=== PATIENT | male | born 1950 | race Two or more races ===

== ENCOUNTER 2019-05-30 18:18 | Inpatient (IN) | payer MEDICARE ==
[2019-05-30] MEDS ORDERED: MAGNESIUM SULFATE SYG 4.06 MEQ/ML SYRINGE ONE (18:20)
[2019-05-30] MEDS ORDERED: EPINEPHrine 10 ML SYRINGE (0.1 MG/ML) ONE (18:20)
[2019-05-30] MEDS ORDERED: DEXTROSE 5% IN WATER 250 ML BAG IV ONE (18:30)
[2019-05-30] MEDS ORDERED: EPINEPHrine 4 MG in DEXTROSE 5% IN WATER 250 ML IV ONE ×2 (18:30)
[2019-05-30] MEDS ORDERED: NOREPINEPHRINE 1 MG/ML 4 ML VIAL IV ONE (18:30)
[2019-05-30] MEDS ORDERED: LIDOCAINE 1% INJ 10MG/ML (20 ML MDV) ONE (19:00)
[2019-05-30 19:09] LABS: Albumin 2.1 g/dL (3.5-5.0); Calcium 7.5 mg/dL (8.4-10.2); Potassium 5.5 mmol/L (3.5-5.1); Total Bilirubin 0.2 mg/dL (0.2-1.3); Total Protein 3.6 g/dL (6.3-8.2)
[2019-05-30 19:11] LABS: Anisocytosis Slight; Hypochromasia Marked; MCH 30.9 pg (25.0-35.0); MCV 106.4 fL (80.0-100.0); Macrocytosis Moderate; Mean Platelet Volume 9.3; Platelet Count 218 k/uL (150-450); RBC 1.53 m/uL (4.30-5.90); RDW 16.1 % (11.5-15.5)
[2019-05-30 19:14] LABS: HGB 4.7 gm/dL (13.0-17.5)
[2019-05-30 19:15] LABS: HCT 16.3 % (39.0-53.0)
[2019-05-30 19:21] LABS: Creatine Kinase MB 4.1 ng/mL (0.0-2.4)
[2019-05-30 19:26] LABS: Troponin I 0.258 ng/mL (0.000-0.034)
[2019-05-30 19:42] LABS: Lymphocytes # (M) 1.86 k/uL (1.0-4.8); Monocytes # (M) 0.35 k/uL (0-1.0); Neutrophils # (M) 9.51 k/uL (1.3-7.7); Neutrophils % (M) 82 %; Nucleated Red Blood Cells 4 /100 WBC (0-0); Total Cells Counted 200; WBC 11.6 k/uL (3.8-10.6)
[2019-05-30 19:43] LABS: INR 1.3 (<1.2); Partial Thromboplastin Time 26.9 sec (22.0-30.0); Polychromasia Present; Prothrombin Time 13.4 sec (9.0-12.0)
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
[2019-05-30] MEDS ORDERED: SODIUM CHLORIDE 0.9% 1,000 ML IV ONE (20:20)
[2019-05-30] MEDS ORDERED: NOREPINEPHRINE 8 MG in SODIUM CHLORIDE 0.9% 250 ML IV ONE (21:00)
[2019-05-30 21:07] LABS: Anisocytosis Slight; Hypochromasia Marked; MCH 30.3 pg (25.0-35.0); MCHC 29.5 g/dL (31.0-37.0); MCV 102.7 fL (80.0-100.0); Macrocytosis Slight; Mean Platelet Volume 9.5; Platelet Count 273 k/uL (150-450); RBC 1.87 m/uL (4.30-5.90); RDW 16.1 % (11.5-15.5)
--- NOTE | 2019-05-30 21:13 | CT ---
EXAMINATION TYPE: CT brain wo con DATE OF EXAM: 05/30/2019 COMPARISON: None HISTORY: 68-year-old male unresponsive post NE TECHNIQUE: Examination was done in axial plane without intravenous contrast. Coronal and sagittal r econstructions performed. CT DLP: 1064.4 mGycm Automated exposure control for dose reduction was used. FINDINGS: There is no evidence of acute intracranial hemorrhage, acute ischemic changes, mass, mass-effect, or extra-axial fluid collection. There is no effacement of cerebral sulci or basal subarachnoid cister ns. There is no hydrocephalus. There is no midline shift. Saucedo-white matter distinction is preserv ed. Prominent secretions layering within the posterior nasopharynx. Mild mucosal thickening ethmoid air c ells. Mastoid air cells are well pneumatized. Empty sella incidentally noted. IMPRESSION: 1. No acute intracranial abnormality seen. 2. Prominent secretions layering within the posterior nasopharynx in keeping with intubated status.
[2019-05-30 21:18] LABS: HCT 19.2 % (39.0-53.0); HGB 5.7 gm/dL (13.0-17.5)
[2019-05-30 21:23] LABS: Albumin 2.5 g/dL (3.5-5.0); Calcium 7.5 mg/dL (8.4-10.2); Total Bilirubin 0.4 mg/dL (0.2-1.3); Total Protein 4.4 g/dL (6.3-8.2)
--- NOTE | 2019-05-30 21:25 | CT ---
EXAMINATION TYPE: CT ChestAbdPelvis wo con DATE OF EXAM: 05/30/2019 COMPARISON: None HISTORY: 68-year-old male anemia. TECHNIQUE: Contiguous axial scanning of the chest, abdomen, and pelvis without IV contrast. Coronal a nd sagittal reconstructions performed. CT DLP: 1281.8 mGycm Automated exposure control for dose reduction was used. FINDINGS: Chest: Left anterior chest wall pacemaker generator with right atrial and right ventricular leads. Median st ernotomy wires are present with post-CABG changes and annuloplasty ring. ET tube tip is just at the yesi. Heart is mildly enlarged without pericardial effusion. Aorta normal caliber with mild atherosclerotic arch calcifications and conventional arch vessel branc rajan anatomy. Large caliber to the main right and left pulmonary arteries measuring up to 3.0 cm suggesting underly ing pulmonary arterial hypertension. Mediastinal lymph nodes measure up to 7 mm right paratracheal region. No thoracic lymphadenopathy by CT size criteria. Prominent bands of atelectasis mid and lower lungs. Trace effusion on the right. Masslike area of con solidation peripheral right base could represent rounded atelectasis or infiltrate/pneumonia. ABDOMEN: Small hiatal hernia. Postsurgical changes of gastrectomy. Cholelithiasis with stones measuring up to 2.2 cm. No abnormal gallbladder distention. Noncontrast appearance of the liver, right adrenal gland, left kidney, and pancreas show no gross abn ormality. Small diverticulum of the second portion of the duodenum projecting into the pancreatic hea d region. Small calcified granulomas in the spleen. 3.1 cm nodule left adrenal gland shows attenuation of 14.9 Hounsfield units which is indeterminate. 1 .7 cm lesion exophytic lateral upper pole right kidney. Additional subcentimeter cortical lesions in the right kidney showing intermediate attenuation. Solid masses or complicated cysts are in the diffe rential. Moderate atherosclerotic calcifications abdominal aorta and iliac arteries. No dilated small bowel, free fluid, or free air. Normal appendix. There is moderate stool burden. No pericolonic inflammatory change. Pelvis: Bladder is collapsed with Saenz catheter in place. Some central prostatic calcifications are noted. N o abnormal fluid collection in the pelvis or pelvic lymphadenopathy. Bones: Nondisplaced fractures of the right anterior third through seventh ribs.. Additional nondisplaced fra ctures of the left anterior fourth through sixth ribs. Mild degenerative changes of the hips. Endplate spondylosis lower thoracic spine. IMPRESSION: 1. ET TUBE TIP IS AT THE YESI. THIS CAN BE PULLED BACK 4 CM AND REASSESSED AT FOLLOW-UP. 2. TRACE RIGHT PLEURAL EFFUSION. THERE IS MASSLIKE CONSOLIDATION AT THE PERIPHERAL RIGHT BASE THAT CO ULD REPRESENT ROUNDED ATELECTASIS VERSUS PULMONARY CONTUSION VERSUS PNEUMONIA. CLINICALLY CORRELATE. SHORT INTERVAL FOLLOW-UP IN 6-8 WEEKS TO REASSESS. 3. NONDISPLACED FRACTURES OF THE RIGHT ANTERIOR THIRD THROUGH SEVENTH RIBS. ADDITIONAL NONDISPLACED F RACTURES OF THE LEFT ANTERIOR FOURTH THROUGH SIXTH RIBS. QUERY CPR IN THIS PATIENT. 4. A 3.1 CM NODULE LEFT ADRENAL GLAND STATISTICALLY REPRESENTS A BENIGN ADRENAL ADENOMA BUT IS SHOWS INDETERMINATE DENSITY. 3-6 MONTH FOLLOW-UP ADRENAL MASS PROTOCOL CT RECOMMENDED TO REASSESS. 5. INDETERMINATE CORTICAL LESIONS WITHIN THE RIGHT KIDNEY SHOULD BE REASSESSED AT THAT TIME WELL. SMALL SOLID MASSES VERSUS COMPLICATED CYSTS ARE IN THE DIFFERENTIAL MEASURING UP TO 1.7 CM. 6. CHOLELITHIASIS AND SMALL HIATAL HERNIA.
[2019-05-30 21:33] LABS: Potassium 6.9 mmol/L (3.5-5.1)
[2019-05-30] MEDS ORDERED: INSULIN REGULAR 100 UNIT/ML VIAL IV ONE (21:33)
[2019-05-30] MEDS ORDERED: DEXTROSE 50% SYRINGE 50 ML IVP STA (21:33)
[2019-05-30] MEDS ORDERED: CALCIUM CHLORIDE 100 MG/ML 10 ML SYRINGE IVP STA (21:33)
[2019-05-30] MEDS ORDERED: SODIUM BICARB 8.4% 50 ML SYR (1 MEQ/ML) IV STA (21:50)
--- NOTE | 2019-05-30 21:57 | XR ---
EXAMINATION TYPE: XR chest 1V portable DATE OF EXAM: 05/30/2019 Comparison: CT same day Clinical History: 5-year-old male with Pain Findings: ET tube tip is very close to the yesi. This can be pulled back 2 cm and reassessed at follow-up. Me matta sternotomy wires are present with annuloplasty ring and post-CABG clips. Left anterior chest wal l pacemaker generator with right atrial and ventricular leads. There is underlying pleural-parenchymal opacity prominent at the right base. Left lung and pleural sp allen appear relatively clear. Right IJ CVC tip in the right atrium. Impression: 1. ET tube tip very close to the yesi. Pull back 2 cm and reassess at follow-up. 2. Prominent pleural parenchymal opacity at the right base likely combination of decreasing effusion and masslike consolidation is seen on patient's CT with differential provided on that exam.
[2019-05-30] MEDS ORDERED: NALOXONE 0.4 MG/ML 1 ML VIAL IV PRN (21:59)
[2019-05-30] MEDS: fentaNYL (PF) 1,000 MCG in SODIUM CHLORIDE 0.9% 80 ML IV SCH (22:02)
--- NOTE | 2019-05-30 22:10 | CONS ---
CONSULTATION This is a 68-year-old gentleman who came to the [facility] Emergency Room having had a cardiac arrest at home. He had a down time of 10 minutes, was resuscitated. By the time he came to the ER, he was in a paced rhythm, hypotensive, was requiring pressors. Initially, the ER doctor told us that the patient had ventricular tachycardia, fibrillation for which he was shocked and he was sent to the [facility]. Before I could start the cardiac cath on him his labs have come back and his hemoglobin is 4.5. In talking to the , we found that patient has had rectal bleeding and is currently on Xarelto. We canceled the procedure and we will admit him to the intensive care unit. Continue the vent. Continue the supportive care and give him a blood transfusion. His prognosis is guarded. PAST MEDICAL HISTORY: Past medical history is significant for CAD status post CABG, valvular heart disease, pacemaker, atrial fibrillation. I do not have a list of his medications, allergies, family history or social history. REVIEW OF SYSTEMS: I am unable to obtain from the patient. EXAM: The patient is intubated, vent, sedated and unresponsive. Heart rate is 60 beats per minute. Blood pressure 96/40. Chest exam reveals diminished air entry at the bases. Heart exam reveals first and second heart sounds. No gallop. Exam of extremities reveal trace edema. Peripheral pulses are diminished. ASSESSMENT: 1. Status post cardiac arrest, probably secondary to GI bleed, hypotension and severe anemia. 2. Renal failure. 3. Coronary artery disease, status post coronary artery bypass grafting. PLAN: Will admit the patient to ICU and manage the GI bleed. He is not a candidate for invasive procedures from cardiac standpoint at this time. MMODL / IJN: [id number] /
[2019-05-30] MEDS: NOREPINEPHRINE 32 MG in SODIUM CHLORIDE 0.9% 250 ML IV ONE (22:13)
[2019-05-30 22:14] LABS: Band Neutrophils % 10 %; Metamyelocytes # (M) 0.32 k/uL (0); Metamyelocytes % 1 %; Neutrophils % (M) 74 %; Nucleated Red Blood Cells 2 /100 WBC (0-0); Total Cells Counted 200
[2019-05-30 22:15] LABS: Lymphocytes # (M) 4.44 k/uL (1.0-4.8); Monocytes # (M) 0.63 k/uL (0-1.0); Polychromasia Present; WBC 31.7 k/uL (3.8-10.6)
[2019-05-30 22:16] LABS: Poikilocytosis (M) Present
[2019-05-30 22:17] LABS: Large Platelets Present
[2019-05-30] MEDS ORDERED: SODIUM CHLORIDE 0.9% 1,000 ML IV STA (23:00)
[2019-05-31 02:03] LABS: ABG HCO3 11 mmol/L (21-25); ABG Oxygen Saturation 99.4 % (94-97); ABG PCO2 45 mmHg (35-45); ABG PO2 392 mmHg (83-108); ABG TCO2 13 mmol/L (19-24); Allen Test Performed? Yes
[2019-05-31 02:05] LABS: ABG PH 7.01 (7.35-7.45)
[2019-05-31 02:49] LABS: Albumin 2.3 g/dL (3.5-5.0); Calcium 7.6 mg/dL (8.4-10.2); Magnesium 4.1 mg/dL (1.6-2.3); Potassium 4.6 mmol/L (3.5-5.1); Total Bilirubin 0.4 mg/dL (0.2-1.3); Total Protein 4.2 g/dL (6.3-8.2)
[2019-05-31 03:00] LABS: Hypochromasia Marked; MCH 30.7 pg (25.0-35.0); MCHC 30.6 g/dL (31.0-37.0); MCV 100.4 fL (80.0-100.0); Macrocytosis Slight; Mean Platelet Volume 9.3; Platelet Count 296 k/uL (150-450); RBC 2.79 m/uL (4.30-5.90); RDW 15.6 % (11.5-15.5); WBC 39.5 k/uL (3.8-10.6)
[2019-05-31] MEDS ORDERED: EPINEPHrine 4 MG in DEXTROSE 5% IN WATER 250 ML IV ONE ×2 (03:00)
[2019-05-31 03:09] LABS: HGB 8.6 gm/dL (13.0-17.5)
[2019-05-31 03:35] LABS: Anisocytosis (M) Present; Band Neutrophils % 28 %; Lymphocytes # (M) 3.16 k/uL (1.0-4.8); Metamyelocytes % 1 %; Monocytes # (M) 1.19 k/uL (0-1.0); Neutrophils % (M) 61 %; Nucleated Red Blood Cells 0 /100 WBC (0-0); Polychromasia Present; Total Cells Counted 200
[2019-05-31 03:36] LABS: Large Platelets Present
[2019-05-31 03:49] LABS: Glucose,Whole Blood 146 mg/dL (75-99)
[2019-05-31 03:56] LABS: INR 1.5 (<1.2); Partial Thromboplastin Time 26.4 sec (22.0-30.0); Prothrombin Time 15.3 sec (9.0-12.0)
[2019-05-31 05:00] LABS: Allen Test Performed? Yes
[2019-05-31 05:06] LABS: ABG HCO3 11 mmol/L (21-25); ABG PCO2 36 mmHg (35-45); ABG PO2 306 mmHg (83-108); ABG TCO2 12 mmol/L (19-24)
[2019-05-31] MEDS ORDERED: PROPOFOL 1,000 MG in EMPTY BAG 1 BAG IV SCH (05:15)
[2019-05-31] MEDS: SODIUM CHLORIDE 0.9% 1,000 ML IV SCH ×4 (07:00→10:04)
--- NOTE | 2019-05-31 07:21 | XR ---
EXAMINATION TYPE: XR chest 1V portable DATE OF EXAM: 05/31/2019 HISTORY: Tube placement. REFERENCE: Previous study dated 05/30/2019. FINDINGS: The patient is ET tube has been withdrawn slightly and is now almost 6 cm from the yesi i n good position. The patient's NG tube and right internal jugular catheter remain in place, unchanged in appearance. There is a bipolar pacemaker place on the left. There is right basilar infiltrate, unchanged from previous. There is an associated cyst right-sided e ffusion. The left lung appears clear. Heart size is obscured. IMPRESSION: 1. IMPROVED POSITION OF THE PATIENT IS ET TUBE. 2. CONTINUING RIGHT BASILAR AIRSPACE DISEASE WITH A CONCOMITANT.
[2019-05-31] MEDS ORDERED: PIPERACILLIN-TAZOBACTAM 3.375 GM in SODIUM CHLORIDE 0.9% 100 ML IVPB SCH ×3 (08:00→09:00)
[2019-05-31] MEDS: NOREPINEPHRINE 32 MG in SODIUM CHLORIDE 0.9% 250 ML IV ONE (08:05)
[2019-05-31] MEDS ORDERED: SODIUM CHLORIDE 0.9% 50 ML with VASOPRESSIN 20 UNIT IVPB SCH ×4 (08:45→09:00)
--- NOTE | 2019-05-31 08:50 | P.CNPUL ---
History of Present Illness Consult date: 05/31/19 Chief complaint: Cardiac arrest History of present illness: 5-year-old male patient with known history of coronary artery disease, previous bypass surgery, previous valve replacement surgery, history of chronic atrial fibrillation, history of pacemaker insertion, who came in to the emergency following a cardiac arrest. The patient was at home and according to the he was doing poorly over the past 1 week and he was getting progressively weak and short of breath. He is also known to have COPD. On the day of the admission, the patient was in the bathroom and he became unresponsive and CPR was started by family as the patient was found to be apneic and pulseless. EMS came to the scene and the patient was found to be in V. fib. Resuscitation was started at 1737 and ended at 1808 by EMS. This time the patient was given epinephrine 3, defibrillated 5 times he was also given amiodarone. He came in to the ED and he immediately was taken to the [employer] [facility] suspecting a STEMI over the phone. In the [employer] [facility], the patient was found to have a hemoglobin of 4.7. Based on that the Was canceled. The patient was sent back to the ED for further workup. As part of his workup, the patient underwent a CAT scan of the chest abdomen and pelvis. CAT scan of the chest revealed a right lower lobe masslike consolidation and small effusion. CAT scan of the abdomen was negative. CAT scan of the brain showed no acute abnormalities. His EKG was AV dual paced rhythm at the rate of 70. Upon further history taking, the patient was having episodes of GI bleed apparently over the past few weeks. The patient has been on long-term artic ulation with Xarelto. No previous history of GI bleed. His hemoglobin was 4.7. He was given packed RBC a total of 3 units and hemoglobin came up to 8.6. White cell count was 11.6 and it came up to 39.5 this morning. He is on a mechanical ventilator on assist control mode at a rate of 26 with a tidal volume of 550 FiO2 of 50% and a PEEP of 10. The morning blood gases showed a pH of 7.09 with a pCO2 of 36 and pO2 of 306 and this was done on a FiO2 of 60%. Chest x-ray from today showing a right lower lobe consolidation. The patient clinically is unresponsive. He is 10 mics of propofol. He is severely hemodynamically unstable and hypotensive and in a shock state. Heart rate remains in the mid 70s. No urine output. He is on her 0.1 g per KG per minute of epinephrine and 0.7 mg per KG per minute of norepinephrine. He has received a total of 5 L of IV fluids. No seizure activity. He is hypothermic with a temperature of 91.1 at a time of admission. Most recent blood pressures shows a systolic blood pressure in the mid 70s. No signs of any upper GI bleeding. Potassium was 6.9 treated with 2 A of bicarb and it came down to 4.6. Serum lactate was 11.7 and is down to 7.4. Troponins are 0.0.5 respectively 2. CPK is at 110. LFTs are abnormal with elevated AST and ALT. Review of Systems ROS unobtainable: due to endotracheal tube Past Medical History Past Medical History: Atrial Fibrillation, Coronary Artery Disease (CAD), Cancer, Chest Pain / Angina, Heart Failure, COPD, Diabetes Mellitus, GI Bleed, Hearing Disorder / Deafness, Pneumonia, Sleep Apnea/CPAP/BIPAP, Thyroid Disorder Additional Past Medical History / Comment(s): Valvular heart disease with prev ious valve replacement, probably the mitral History of Any Multi-Drug Resistant Organisms: None Reported Past Surgical History: Coronary Bypass/CABG, Heart Catheterization Additional Past Surgical History / Comment(s): Heart valve repair/replace, Permanent Pacemaker, Bariatric surgery Past Anesthesia/Blood Transfusion Reactions: No Reported Reaction Past Psychological History: No Psychological Hx Reported Smoking Status: Current some day smoker Past Alcohol Use History: None Reported Past Drug Use History: None Reported Medications and Allergies Home Medications Medication Instructions Recorded Confirmed Type Albuterol Nebulized [Ventolin 2.5 mg INHALATION RT-Q4H PRN 05/30/19 05/30/19 History Nebulized] Atorvastatin [Lipitor] 40 mg PO DAILY 05/30/19 05/30/19 History Budesonide/Formoterol Fumarate 2 puff INHALATION RT-BID 05/30/19 05/30/19 History [Symbicort 80-4.5 Mcg Inhaler] Furosemide [Lasix] 80 mg PO BID 05/30/19 05/30/19 History Levothyroxine Sodium [Synthroid] 112 mcg PO DAILY 05/30/19 05/30/19 History Metoprolol Tartrate [Lopressor] 25 mg PO BID 05/30/19 05/30/19 History Potassium Chloride ER [K-Dur 20] 20 meq PO BID 05/30/19 05/30/19 History Rivaroxaban [Xarelto] 15 mg PO DAILY 05/30/19 05/30/19 History Allergies Allergy/AdvReac Type Severity Reaction Status Date / Time Unable to Assess Allergy Verified 05/30/19 19:24 Physical Exam Vitals: Vital Signs Temp Pulse Resp BP Pulse Ox 05/31/19 06:00 70 2 L 99/48 100 05/31/19 05:50 91.1 F L 68 0 L 108/45 100 05/31/19 05:40 68 0 L 120/45 100 05/31/19 05:30 68 0 L 100/45 100 05/31/19 05:20 67 2 L 117/49 100 05/31/19 05:10 66 0 L 110/45 100 05/31/19 05:00 64 3 L 116/38 100 05/31/19 04:50 65 0 L 73/35 100 05/31/19 04:40 66 8 L 87/29 100 05/31/19 04:30 71 21 90/31 100 05/31/19 04:27 68 26 H 80/25 100 05/31/19 04:10 68 28 H 05/31/19 04:00 91.1 F L 65 26 H 05/31/19 02:34 92.4 F L 59 L 14 113/44 05/31/19 00:40 92.3 F L 60 14 122/49 05/31/19 00:20 92.5 F L 60 14 115/58 05/31/19 00:10 93.0 F L 60 14 130/48 05/30/19 23:52 93.0 F L 61 14 120/53 05/30/19 23:10 97.9 F 59 L 14 89/37 05/30/19 22:53 97.7 F 59 L 14 82/38 05/30/19 22:48 97.8 F 60 14 91/42 05/30/19 22:38 97.7 F 60 14 91/34 05/30/19 22:10 60 14 83/42 99 05/30/19 21:25 60 14 83/41 100 05/30/19 21:10 59 L 14 64/35 98 05/30/19 20:35 60 14 73/38 98 05/30/19 19:41 63 14 101/58 95 Intake and Output 05/30/19 05/31/19 05/31/19 22:59 06:59 14:59 Intake Total 16.569 2669.472 Output Total 0 0 Balance 16.569 2669.472 0 Intake: IV 2000 Sodium Chloride 0.9% 1, 2000 000 ml @ 999 mls/hr IV . Q1H1M ONE Rx#:[id number] Intake, IV Titration 16.569 49.472 Amount Norepinephrine 32 mg In 3.354 49.472 Sodium Chloride 0.9% 250 ml @ 0.05 MCG/KG/MIN 2. 516 mls/hr IV .Q24H ONE Rx#:[id number] Norepinephrine 8 mg In 13.215 Sodium Chloride 0.9% 250 ml @ 0.05 MCG/KG/MIN 10. 062 mls/hr IV .Q24H ONE Rx#:[id number] Blood Product 0 620 Rc As-1 Unit 310 [id number] Rc As-1 Unit 0 310 [id number] Output: Urine 0 0 Other: Weight 104 kg 113 kg Patient is intubated on a mechanical ventilator. Unresponsive. Orogastric and orotracheal tube are both in place. Head exam was generally normal. There was no scleral icterus or corneal arcus. Mucous membranes were moist. The patient has no signs of trauma to the head Neck was supple and without jugular venous distension, thyromegaly, or carotid bruits. Carotids were easily palpable bilaterally. There was no adenopathy.. The patient has bilateral JVDs. The patient has a right IJ triple-lumen catheter in place. Heart sounds are regular, paced, no significant murmurs appreciated. There is a sternotomy scar over the anterior chest area. Lungs sounds are diminished bilaterally and there is diffuse expiratory wheezes throughout the lung milan bilaterally and prolongation of the exhalation phase of breathing Abdominal exam revealed normal bowel sounds. The abdomen was soft, non-tender, and without masses, organomegaly, or appreciable enlargement of the abdominal aorta. Extremities are cold and clammy and pulses are only obtained by Doppler in lower extremities bilaterally. Femoral pulses are present. No cyanosis. No c lubbing. No open wounds or sores. Examination of the skin revealed no evidence of significant rashes, suspicious appearing nevi or other concerning lesions. Neurologic the patient is around 3-4 mm pupils which are barely reactive to light. No corneal reflex. No light reflex. Positive doll's eyes maneuver. No Babinski. No clonus. Completely unresponsive to any deep painful stimulation at this point in time. No facial asymmetry. A very weak gag was elicited. Results - Laboratory Findings CBC and BMP: 05/31/19 02:15 05/31/19 02:15 ABG ABG pH 7.09 (7.35-7.45) L* 05/31/19 04:58 ABG pCO2 36 mmHg (35-45) 05/31/19 04:58 ABG pO2 306 mmHg (83-108) H 05/31/19 04:58 ABG O2 Saturation 100.0 % (94-97) H 05/31/19 04:58 PT/INR, D-dimer PT 15.3 sec (9.0-12.0) H 05/31/19 02:15 INR 1.5 (<1.2) H 05/31/19 02:15 Abnormal lab findings: Abnormal Labs 05/30/19 05/30/19 05/30/19 18:40 18:40 18:40 WBC 11.6 H RBC 1.53 L Hgb 4.7 L* Hct 16.3 L* MCV 106.4 H MCHC 29.0 L RDW 16.1 H Neutrophils # (Manual) 9.51 H Monocytes # (Manual) Metamyelocytes # (Man) Nucleated RBCs 4 H PT INR ABG pH ABG pO2 ABG HCO3 ABG Total CO2 ABG O2 Saturation Potassium 5.5 H Chloride 110 H Carbon Dioxide 10 L BUN 73 H Creatinine 2.22 H Glucose 265 H POC Glucose (mg/dL) Plasma Lactic Acid Luis Calcium 7.5 L Magnesium AST 202 H ALT 164 H Alkaline Phosphatase CK-MB (CK-2) 4.1 H Troponin I 0.258 H* Total Protein 3.6 L Albumin 2.1 L Crossmatch 05/30/19 05/30/19 05/30/19 18:40 18:40 18:40 WBC RBC Hgb Hct MCV MCHC RDW Neutrophils # (Manual) Monocytes # (Manual) Metamyelocytes # (Man) Nucleated RBCs PT 13.4 H INR 1.3 H ABG pH ABG pO2 ABG HCO3 ABG Total CO2 ABG O2 Saturation Potassium Chloride Carbon Dioxide BUN Creatinine Glucose POC Glucose (mg/dL) Plasma Lactic Acid Luis 11.7 H* Calcium Magnesium AST ALT Alkaline Phosphatase CK-MB (CK-2) Troponin I Total Protein Albumin Crossmatch See Detail 05/30/19 05/30/19 05/30/19 20:25 20:25 20:25 WBC 31.7 H RBC 1.87 L Hgb 5.7 L* Hct 19.2 L* MCV 102.7 H MCHC 29.5 L RDW 16.1 H Neutrophils # (Manual) 26.60 H Monocytes # (Manual) Metamyelocytes # (Man) 0.32 H Nucleated RBCs 2 H PT INR ABG pH ABG pO2 ABG HCO3 ABG Total CO2 ABG O2 Saturation Potassium 6.9 H* Chloride 110 H Carbon Dioxide 11 L BUN 75 H Creatinine 2.37 H Glucose 232 H POC Glucose (mg/dL) Plasma Lactic Acid Luis 8.8 H* Calcium 7.5 L Magnesium AST 482 H ALT 373 H Alkaline Phosphatase CK-MB (CK-2) Troponin I Total Protein 4.4 L Albumin 2.5 L Crossmatch 05/30/19 05/31/19 05/31/19 22:29 00:04 02:00 WBC RBC Hgb Hct MCV MCHC RDW Neutrophils # (Manual) Monocytes # (Manual) Metamyelocytes # (Man) Nucleated RBCs PT INR ABG pH 7.01 L* ABG pO2 392 H ABG HCO3 11 L ABG Total CO2 13 L ABG O2 Saturation 99.4 H Potassium Chloride Carbon Dioxide BUN Creatinine Glucose POC Glucose (mg/dL) Plasma Lactic Acid Luis 8.5 H* Calcium Magnesium AST ALT Alkaline Phosphatase CK-MB (CK-2) Troponin I 0.521 H* Total Protein Albumin Crossmatch 05/31/19 05/31/19 05/31/19 02:15 02:15 02:15 WBC 39.5 H RBC 2.79 L Hgb 8.6 L D Hct 28.0 L MCV 100.4 H MCHC 30.6 L RDW 15.6 H Neutrophils # (Manual) 35.10 H Monocytes # (Manual) 1.19 H Metamyelocytes # (Man) 0.40 H Nucleated RBCs PT 15.3 H INR 1.5 H ABG pH ABG pO2 ABG HCO3 ABG Total CO2 ABG O2 Saturation Potassium Chloride 113 H Carbon Dioxide 11 L BUN 80 H Creatinine 2.56 H Glucose 138 H POC Glucose (mg/dL) Plasma Lactic Acid Luis Calcium 7.6 L Magnesium 4.1 H AST 942 H ALT 646 H Alkaline Phosphatase 319 H CK-MB (CK-2) Troponin I Total Protein 4.2 L Albumin 2.3 L Crossmatch 05/31/19 05/31/19 05/31/19 03:35 04:37 04:58 WBC RBC Hgb Hct MCV MCHC RDW Neutrophils # (Manual) Monocytes # (Manual) Metamyelocytes # (Man) Nucleated RBCs PT INR ABG pH 7.09 L* ABG pO2 306 H ABG HCO3 11 L ABG Total CO2 12 L ABG O2 Saturation 100.0 H Potassium Chloride Carbon Dioxide BUN Creatinine Glucose POC Glucose (mg/dL) 146 H Plasma Lactic Acid Luis 7.4 H* Calcium Magnesium AST ALT Alkaline Phosphatase CK-MB (CK-2) Troponin I Total Protein Albumin Crossmatch - Diagnostic Findings Chest x-ray: image reviewed Assessment and Plan Plan: 1 cardiac arrest. The patient presented with an outpatient V. fib and the patient was resuscitated with a estimated downtime of at least 24 minutes based on the EMS run sheet with the patient was resuscitated at home and he was given CPR, defibrillation, epinephrine and amiodarone. 2 shock likely secondary to above, currently on high dose epinephrine and norepinephrine 3 coronary artery disease bypass surgery 4 valvular heart disease with previous mitral valve surgery/replacement 5 history of chronic atrial fibrillation. Current rhythm is paced and the patient has a pacemaker in place 6 acute hypoxic respiratory failure secondary to above 7 acute anemia, versus subacute anemia related to GI bleeding. The patient presented with a hemoglobin of 4.7 and he was resuscitated with packed RBC. No active signs of bleeding at this point in time and hemoglobin responded nicely. 8 acute kidney injury 9 acute lactic acidosis secondary to above 10 masslike consolidation of the right lower lobe, consider aspiration pneumonia 11 acute leukocytosis likely secondary to stress. This could be reactive versus septic. 12 severe metabolic acidosis secondary to above 13 COPD with active bronchospasm wheezing 14 hypothyroidism 15 hyperlipidemia Plan The patient is still in shock and he has shown signs of multisystem organ failure. This occurred following cardiac arrest with a prolonged downtime. He is on a combination of fluids, epinephrine and norepinephrine infusion at this point in time. He remains hypotensive and the blood pressure remains low. He will be started on vasopressin. Continue IV fluids with normal saline. He has already received a total of 5 L. We'll give an additional liter for now. We will obtain a stat echocardiogram. This will be needed to assess valves, LV function and other abnormalities contributing to this shock state. Cover this patient with broad-spectrum antibiotics. Hyperkalemia was treated. Repeated blood gases and perform the necessary vent changes. Monitor hemoglobin and transfuse accordingly to maintain hemoglobin above 7. The patient has signs of hypoxic/anoxic encephalopathy however this is quite early at this point in time nontender the patient is still hypotensive and hypothermic and in severe acidosis. He will have repeated neurochecks here in the ICU. We'll try to keep his temperatures between 34 and 36F. Not lying catheter was inserted for h emodynamic monitoring. Condition is critical. Consultation will be obtained with cardiology, nephrology, neurology, and GI. We'll continue to follow make further recommendations. We'll try to also establish a CODE STATUS with the family. We'll continue to follow. Condition is extremely critical with a high risk for mortality/. We'll hold anticoagulation for now. Time with Patient: Greater than 30
[2019-05-31] MEDS ORDERED: SODIUM CHLORIDE 0.9% 2,000 ML IV ONE (08:52)
[2019-05-31 08:58] LABS: ABG Base Excess -19.5 mmol/L; ABG PCO2 32 mmHg (35-45); ABG PO2 223 mmHg (83-108); ABG TCO2 11 mmol/L (19-24); Allen Test Performed? Yes
[2019-05-31 09:00] LABS: ABG HCO3 10 mmol/L (21-25); ABG PH 7.11 (7.35-7.45)
[2019-05-31] MEDS ORDERED: PANTOPRAZOLE 40 MG/10 ML VIAL IV SCH (09:00)
[2019-05-31] MEDS ORDERED: CHLORHEXIDINE GLUCONATE 15 ML CUP MUCOUS MEM SCH (09:00)
[2019-05-31] MEDS ORDERED: methylPREDNISolone SOD SUCCI 125 MG/2 ML VIAL IV SCH (09:00)
[2019-05-31] MEDS ORDERED: LEVOTHYROXINE IVP 100 MCG/5 ML VIAL IV SCH (09:00)
[2019-05-31] MEDS: fentaNYL (PF) 1,000 MCG in SODIUM CHLORIDE 0.9% 80 ML IV SCH (09:17)
[2019-05-31] MEDS ORDERED: EPINEPHrine 4 MG in DEXTROSE 5% IN WATER 250 ML IV SCH ×2 (09:30)
--- NOTE | 2019-05-31 09:40 | PCN ---
PROCEDURE NOTE ARTERIAL LINE PLACEMENT: PREOP DIAGNOSIS: Cardiac arrest. POSTOP DIAGNOSIS: Cardiac arrest. Indications: Hemodynamic monitoring. A time-out was completed verifying correct patient, procedure, site, positioning, and implant(s) or special equipment if applicable. Amrando's test was performed to ensure adequate perfusion. The patient's right groin was prepped and draped in sterile fashion. 1% Lidocaine was used to anesthetize the area. An 18G Arrow arterial line was introduced into the femoral artery. The catheter was threaded over the guide wire and the needle was removed with appropriate pulsatile blood return. Blood loss was minimal. The catheter was then sutured in place to the skin and a sterile dressing applied. Perfusion to the extremity distal to the point of catheter insertion was checked and found to be adequate. The patient tolerated the procedure well and there were no complications. CLARISA / JAMIEN: [id number] /
[2019-05-31 10:02] VITALS: RESP 26; TEMP 95
--- NOTE | 2019-05-31 11:01 | PN ---
PROGRESS NOTE Edmundo Calderon is a 68-year-old gentleman that is admitted to hospital with cardiac arrest. I evaluated him yesterday evening and we were about to take him for a cardiac catheterization and we found that he was profoundly anemic with a hemoglobin of 4.5. We canceled the cardiac cath. He is admitted to ICU where currently he is on maximum dose of pressors to maintain his blood pressure and still is hypotensive. He has a paced rhythm and has not made any meaningful recovery. Currently family is deciding on comfort care. His troponins have not gone up significantly. Hemoglobin has improved following blood transfusion. The patient's clinical presentation was probably related to acute blood loss anemia and cardiorespiratory arrest was probably related to it. No further cardiac intervention or followup at this time. MMODL / IJN: [id number] /
[2019-05-31] MEDS ORDERED: IPRATROPIUM-ALBUTEROL 3 ML NEB INHALATION SCH (12:00)
[2019-05-31] MEDS ORDERED: MORPHINE SULFATE 4 MG/ML SYRINGE IV PRN (12:13)
[2019-05-31] MEDS ORDERED: LORazepam 2 MG/ML INJ IV PRN (12:13)
[2019-05-31] MEDS ORDERED: HYDROmorphone 1 MG/ML 1 ML SYRINGE IVP PRN (12:13)
[2019-05-31] MEDS ORDERED: SCOPOLAMINE 1.5MG/72HR PATCH TRANSDERM SCH (12:30)
[2019-05-31 14:13] VITALS: BP 87/47; PULSE 87
--- NOTE | 2019-05-31 18:18 | HP ---
HISTORY AND PHYSICAL CHIEF COMPLAINT: Cardiac arrest. HISTORY OF PRESENT ILLNESS: This gentleman apparently was found down in his home. He apparently has multiple medical problems. It is not known if he has a physician in the area. The family states that he is very private about his health care, his treatments and any symptoms or any problems that he is having. He has had a coronary artery bypass graft in the past. He has a history of chronic atrial fibrillation. He apparently has a pacemaker. He also has a history of diabetes and he may have been being treated for a GI bleed. In the emergency room his hemoglobin is 4.7. REVIEW OF SYSTEMS: Unobtainable. He is on the ventilator. Past medical history, family history and personal and social histories are otherwise unobtainable in any detail. PHYSICAL EXAM: He is on multiple pressors and his blood pressure is 85/40. He is intubated and neck veins are not distended. Chest is clear. Cardiac exam demonstrates an irregularly irregular pulse. The abdomen is soft and extremities are normal. IMPRESSION: 1. Cardiorespiratory arrest. 2. History of coronary artery disease status post coronary artery bypass grafting. 3. History of diabetes mellitus. 4. Gastrointestinal bleed. 5. Blood loss anemia. 6. Status post pacemaker implantation. PLAN: 1. Continue on ventilator support. 2. Continue to render ICU care. 3. The family that have assembled are indicating that he is to be a DNR and they are waiting for the rest of the family to arrive and then they will stop life supports. MMODL / IJN: [id number] /
--- NOTE | 2019-05-31 18:25 | PN ---
PROGRESS NOTE DATE OF SERVICE: 05/31/2019 CHIEF COMPLAINT: Cardiorespiratory arrest. HISTORY OF PRESENT ILLNESS: This gentleman is not responding. He remains on the ventilator until all the family members arrive. PHYSICAL EXAM: On pressors his blood pressure remains low in the 70s. Breath sounds are heard on both sides and cardiac exam is unchanged. Abdomen is slightly distended. Extremities are unchanged. IMPRESSION: 1. Status post cardiorespiratory arrest with likely anoxic brain injury. 2. Hypotension. 3. History of diabetes. 4. Probable gastrointestinal hemorrhage. 5. Blood loss anemia. PLAN: Withdrawal care once the family has arrived and indicates that those are their wishes. MMODL / IJN: [id number] /
--- NOTE | 2019-06-02 16:06 | CDI ---
Documentation Clarification Form Date: 06/02/2019 3:50:29 PM From: Celia Stephens RN, CCDS Phone: [email or web address] Admit Date: 05/30/2019 9:59:00 PM Patient Name: Edmundo Calderon Visit Number: [id number] Discharge Date: 05/31/2019 4:34:00 PM ATTENTION: The Clinical Documentation Specialists (CDI) and [facility] Coding Staff appreciate your assistance in clarifying documentation. Please respond to the clarification below the line at the bottom and electronically sign. The CDI & [facility] Coding staff will review the response and follow-up if needed. Please note: Queries are made part of the Legal Health Record. If you have any questions, please contact the author of this message via ITS. Dr. Surya Beaulieu The patient presented post cardiac arrest and with profound anemia. History/Risk Factors: s/p cardiac arrest with V-fib, shocked and resuscitated, GIB Clinical Indicators: hypotensive, respiratory failure, anemic, high troponins, hyperkalemic, renal failure Lab findings: AST 942, ALT 646, Alk Phos 319, lactic acid 8.5 Vital Signs: hypotensive, tachypneic Treatment: Max dose of pressors to maintain BP, IV antibiotics, blood transfusions, ventilator, calcium, dextrose and insulin Consults: Pulmonary In your professional opinion, can you please clarify if the above is clinically significant for: Acute liver failure Clinically insignificant findings Other, please specify Unable to determine MTDD
[2019-06-08 12:27] LABS: ABG PH 7.09 (7.35-7.45)
--- NOTE | 2019-06-11 13:09 | MISC ---
MISCELLANOUS REPORT QUERY: Unable to determine. MMODL / IJN: [id number] /
--- NOTE | 2019-06-17 17:54 | DS ---
DISCHARGE SUMMARY CHIEF COMPLAINT: Cardiorespiratory arrest. HISTORY OF PRESENT ILLNESS AND PHYSICAL EXAMINATION: Details of this man's history and physical can be found in the initial workup. LABORATORY STUDIES: While he was in the hospital he had laboratory studies, details of which can be found in the laboratory section of his chart. COURSE IN THE HOSPITAL: After he was admitted and resuscitated he was placed on ventilatory support and pressors. He was taken care of by skin piler. There was no sign of significant cardiovascular or neurologic recovery or potential. The family made the decision to take him off the ventilator, and he was pronounced on June 02, 2019. FINAL DIAGNOSES: 1. Cardiorespiratory arrest. 2. History of coronary artery disease, status post coronary artery bypass grafting. 3. History of diabetes mellitus. 4. History of gastrointestinal bleed. OPERATIONS: None. CONSULTATIONS: Intensive Medicine. He is not improved. He . MMYASSINE / ALICJA: [id number] /
== END 2019-05-31 16:34 | disposition expired | DRG 377 ==
LOC: EC 18:18 → UNDOADMIN 19:28 → 2SICU 19:28
PROVIDERS: ADMIT Family Medicine; ATTEND Family Medicine
PROC: 5A1935Z Respiratory Ventilation, Less than 24 Consecutive Hours (ICD-10-PCS; 2019-05-30)
PROC: 05HM33Z Insertion of Infusion Device into Right Internal Jugular Vein, Percutaneous Approach (ICD-10-PCS; 2019-05-30)
PROC: 0BH17EZ Insertion of Endotracheal Airway into Trachea, Via Natural or Artificial Opening (ICD-10-PCS; principal; 2019-05-30 17:00)
PROC: 04HY32Z Insertion of Monitoring Device into Lower Artery, Percutaneous Approach (ICD-10-PCS; 2019-05-31)
PROC: 4A133B1 Monitoring of Arterial Pressure, Peripheral, Percutaneous Approach (ICD-10-PCS; 2019-05-31)
PROC: 4A133J1 Monitoring of Arterial Pulse, Peripheral, Percutaneous Approach (ICD-10-PCS; 2019-05-31)
PROC: 30233N1 Transfusion of Nonautologous Red Blood Cells into Peripheral Vein, Percutaneous Approach (ICD-10-PCS; 2019-05-31)
DX: K92.2 Gastrointestinal hemorrhage, unspecified (principal); I21.3 ST elevation (STEMI) myocardial infarction of unspecified site; J96.01 Acute respiratory failure with hypoxia; J69.0 Pneumonitis due to inhalation of food and vomit; S22.43XA Multiple fractures of ribs, bilateral, initial encounter for closed fracture; S27.329A Contusion of lung, unspecified, initial encounter; D62 Acute posthemorrhagic anemia; E87.2 Acidosis; G93.1 Anoxic brain damage, not elsewhere classified; I47.2 Ventricular tachycardia; N17.9 Acute kidney failure, unspecified; R57.8 Other shock; Z51.5 Encounter for palliative care; Z66 Do not resuscitate; E11.9 Type 2 diabetes mellitus without complications; E87.5 Hyperkalemia; F17.210 Nicotine dependence, cigarettes, uncomplicated; G47.30 Sleep apnea, unspecified; H91.90 Unspecified hearing loss, unspecified ear; I25.10 Atherosclerotic heart disease of native coronary artery without angina pectoris; I48.2 Chronic atrial fibrillation; I49.01 Ventricular fibrillation; I50.9 Heart failure, unspecified; I46.9 Cardiac arrest, cause unspecified; I46.8 Cardiac arrest due to other underlying condition; J44.9 Chronic obstructive pulmonary disease, unspecified; K80.20 Calculus of gallbladder without cholecystitis without obstruction; Z79.01 Long term (current) use of anticoagulants; Z79.51 Long term (current) use of inhaled steroids; Z79.890 Hormone replacement therapy; Z79.899 Other long term (current) drug therapy; Z95.0 Presence of cardiac pacemaker; Z95.1 Presence of aortocoronary bypass graft; Z95.2 Presence of prosthetic heart valve; E27.8 Other specified disorders of adrenal gland; Z53.09 Procedure and treatment not carried out because of other contraindication; Z87.01 Personal history of pneumonia (recurrent); Z98.84 Bariatric surgery status; E66.9 Obesity, unspecified; Z68.35 Body mass index [BMI] 35.0-35.9, adult; W20.8XXA Other cause of strike by thrown, projected or falling object, initial encounter; T68.XXXA Hypothermia, initial encounter
CPT/HCPCS: 36415; 36556; 36600; 70450; 71045; 71250; 74176; 80053; 82550; 82553; 82805; 83605; 83735; 84484; 85025; 85610; 85730; 86850; 86900; 86901; 86920; 87040; 92950; 93005; 94002; 94003; 99285